=== PATIENT | female | born 1980 | race Caucasian/White ===

== ENCOUNTER 2019-02-20 13:49 | Emergency (ER) | payer MEDICAID ==
[~2019-02-20] VITALS: Ht 154.9 cm; Wt 61.4 kg
[~2019-02-20 13:49] MED LIST: MOTRIN
[2019-02-20 14:13] VITALS: BP 94/59
--- NOTE | 2019-02-20 14:15 | NUR ---
PT STARTED FEELING ABDOMINAL CRAMPING, SEVERE HEADACHE WITH SHAKING DURING TRIAGE, REPORTED TO L&D CHARGE NURSE DAILYNN AND SENT PT TO L&D VIA WHEELCHAIR.
--- NOTE | 2019-02-20 14:15 | NUR ---
Jeri cristina in ED - 02/20/19 at 1556 by CARRIE PT STARTED FEELING ABDOMINAL CRAMPING, SEVERE HEADACHE WITH SHAKING, REPORTED TO L&D CHARGE NURSE DAILYNN AND SENT PT TO L&D VIA WHEELCHAIR.
[2019-02-20] MEDS ORDERED: LACTATED RINGERS 1,000 ML IV ONE (15:35)
[2019-02-20] MEDS ORDERED: PREN-380 PO (15:43)
[2019-02-20] MEDS ORDERED: FERR-252 PO (15:43)
--- NOTE | 2019-02-20 15:45 | NUR ---
CALLED L&D SPOKE TO DAILYNN FOR UPDATE ON PT. PT WILL BE STAYING IN L&D AT THIS TIME. ER MD DR MI NOTIFIED. OB MD DR. PAEZ GAVE ORDER AND WILL SEE PT IN OB.
--- NOTE | 2019-02-20 16:45 | NUR ---
PATIENT TO BED 10 FROM L&D AT THIS TIME.
--- NOTE | 2019-02-20 16:50 | NUR ---
PT BIB SELF C/O HEADACHE, low abd cramping pain, n/v 2times, X 10PM lastnight 02/19/19. PT DENIES ANY TRUAMA, LMP 08/19/18 MIS AB0, NO VAG BLEDDING 26 WEEKS FHT 145. PT STS "LASTNIGHT AROUND 10PM, I STARTED HAVING TINGLING TO RIGHT SIDE OF MY BODY, LOW ABD CRAMPING, N/V 2TIMES AND LT SIDE HEADACHE FOR THREE HOURS. THEN THE PAIN WENT AWAY. MY RT HAND HAS TINGLING AND THE LEFT SIDE OF MY HEAD HAS PAIN OF AND ON."ER MD DR MARIAMA TATE PT IN L&D-PT TRANSFERRED TO ER BED 10. IV 18GA RT A/C DONE, BLOOD SENT TO LAB, EKG DONE, L&D AT BEDSIDE. SKIN IS INTACT, PALE/WARM/DRY; AAOX4, PERRL, WITH EVEN AND STEADY GAIT; LUNGS CLEAR BL, BREATHING UNLABORED; HR EVEN AND REGULAR, BL PERIPHERAL PULSES PRESENT; BS ACTIVE X4, TENDERNESS TO LOW ABD ON PALPATION, PT DENIES ANY FEVER, CP, SOB, OR COUGH AT THIS TIME; PT STATES 5/10 PAIN AT THIS TIME; VSS; PATIENT POSITIONED FOR COMFORT; HOB ELEVATED; BEDRAILS UP X2; BED DOWN. Pupils equal and reactive to light bilaterally. no facial droop noted. silght smile deficit noted off and on to rt side of mouth. Speech normal for patient. Patient is alert and oriented to person, place, time and event. Bilateral hand field support representative equal. Bilateral foot push equal.
--- NOTE | 2019-02-20 16:50 | NUR ---
CALLED 911 FOR CODE BRAIN TRANSFER PER DR. MI. ETA 10MIN
--- NOTE | 2019-02-20 16:52 | NUR ---
pt sts " i feel much better after the IV you gave me. may i get more IV, it made my headache feel better. pain now 10/26. dorothy, félix4 at this time.
[2019-02-20 16:53] LABS: BASOPHILS % (AUTO) 0.3 % (0.0-2.0); EOSINOPHILS # (AUTO) 0.1 K/uL (0-0.4); HEMATOCRIT 32.4 % (36-48); LYMPHOCYTES # (AUTO) 2.4 K/uL (2.5-16.5); LYMPHOCYTES % (AUTO) 31.7 % (20.5-51.1); MEAN CORPUSCULAR HEMOGLOBIN 31 pg (27-31); MEAN CORPUSCULAR HGB CONC 34 g/dL (33-37); MONOCYTES # (AUTO) 0.6 K/uL (0.8-1.0); MONOCYTES % (AUTO) 7.7 % (1.7-9.3); NEUTROPHILS # (AUTO) 4.5 K/uL (1.8-7.7); NEUTROPHILS % (AUTO) 59.3 % (42.2-75.2); PLATELET COUNT (AUTO) 237 K/uL (140-450); RED CELL DISTRIBUTION WIDTH 14.5 % (11.6-13.7); WHITE BLOOD COUNT (AUTO) 7.5 K/uL (4.8-10.8)
[2019-02-20 16:54] LABS: APPEARANCE,URINE CLEAR (CLEAR); BILIRUBIN,URINE NEGATIVE (NEGATIVE); BLOOD, URINE NEGATIVE (NEGATIVE); COLOR,URINE YELLOW (YELLOW); LEUKOCYTE ESTERASE ,URINE NEGATIVE (NEGATIVE); NITRITE, URINE NEGATIVE (NEGATIVE); PH,URINE 6.5 (5.0-9.0); UGLUCOSE NEGATIVE (NEGATIVE)
[2019-02-20 17:30] VITALS: BP 108/64
--- NOTE | 2019-02-20 17:30 | NUR ---
Patient to be transferred to [facility]. Is being transferred due to HIGHER LEVEL OF CARE. Receiving facility has accepting physician and available space. ER physician has signed transfer form. Patient or responsible republican has agreed to transfer and signed form. Patient belongings inventoried and will be sent with patient. Copy of nursing notes, lab reports, EKG, Physicians Orders and X-rays to be sent with patient. Report called to YOEL at receiving facility. [facility] ambulance service has been called for transfer. ETA is 10 MIN.
[2019-02-20 17:56] LABS: ALBUMIN 2.4 g/dL (3.4-5.0); ANION GAP 14.7 (8-16); CARBON DIOXIDE 22.8 mmol/L (21-32); CREATININE 0.5 mg/dL (0.6-1.3); POTASSIUM 3.5 mmol/L (3.5-5.1); TOTAL BILIRUBIN 0.4 mg/dL (0.0-1.0)
== END 2019-02-20 17:30 | disposition short-term general hospital (02) ==
LOC: MED 13:49 → MLD 14:23 → MED 15:32 → UNDOADMOB 15:33 → MLD 15:33 → MED 17:30
DX: O26.892 Other specified pregnancy related conditions, second trimester (principal); R51 Headache; R29.810 Facial weakness; R20.0 Anesthesia of skin; Z3A.28 28 weeks gestation of pregnancy; Z79.899 Other long term (current) drug therapy; Z88.0 Allergy status to penicillin
CPT/HCPCS: 36415; 80053; 81003; 82948; 85025; 93005; 93970; 99285; J7120; Q0092

== ENCOUNTER 2019-05-14 11:12 | Inpatient (IN) | payer MEDICAID ==
[~2019-05-14] VITALS: Ht 154.9 cm; Wt 67.1 kg
[~2019-05-14 11:12] MED LIST changes: +FERR-252 PO; -MOTRIN; +PREN-380 PO
[2019-05-14 11:45] VITALS: BP 103/70
[2019-05-14] MEDS ORDERED: CARBOPROST 250 MCG/ML AMP IM PRN (14:25)
[2019-05-14] MEDS ORDERED: METHYLERGONOVINE 0.2 MG/ML AMP IM PRN ×2 (14:25→18:25)
[2019-05-14] MEDS ORDERED: LACTATED RINGERS 1,000 ML IV SCH (15:00)
[2019-05-14] MEDS ORDERED: CITRIC ACID/SODIUM CITRATE 30 ML UDC PO SCH (15:15)
[2019-05-14] MEDS ORDERED: CLINDAMYCIN 900 MG in DEXTROSE 5% 100 ML IV SCH ×3 (15:20→21:00)
[2019-05-14 15:35] LABS: BILIRUBIN,URINE NEGATIVE (NEGATIVE); BLOOD, URINE NEGATIVE (NEGATIVE); COLOR,URINE YELLOW (YELLOW); LEUKOCYTE ESTERASE ,URINE TRACE (NEGATIVE); NITRITE, URINE NEGATIVE (NEGATIVE); UGLUCOSE NEGATIVE (NEGATIVE)
[2019-05-14 15:37] LABS: APPEARANCE,URINE HAZY (CLEAR)
[2019-05-14 15:41] LABS: BASOPHILS # (AUTO) 0.1 K/uL (0.00-0.22); BASOPHILS % (AUTO) 0.9 % (0.0-2.0); EOSINOPHILS % (AUTO) 0.5 % (0.0-4.0); HEMATOCRIT 36.8 % (36-48); HEMOGLOBIN 12.1 g/dL (12.0-16.0); LYMPHOCYTES # (AUTO) 2.5 K/uL (2.5-16.5); LYMPHOCYTES % (AUTO) 38.2 % (20.5-51.1); MEAN CORPUSCULAR HEMOGLOBIN 30 pg (27-31); MEAN CORPUSCULAR HGB CONC 33 g/dL (33-37); MEAN CORPUSCULAR VOLUME 91.5 fL (80-94); MONOCYTES # (AUTO) 0.5 K/uL (0.8-1.0); MONOCYTES % (AUTO) 7.4 % (1.7-9.3); NEUTROPHILS # (AUTO) 3.5 K/uL (1.8-7.7); PLATELET COUNT (AUTO) 166 K/uL (140-450); RED BLOOD CELL COUNT(AUTO) 4.02 MIL/uL (4.20-5.40); RED CELL DISTRIBUTION WIDTH 16.9 % (11.6-13.7); WHITE BLOOD COUNT (AUTO) 6.6 K/uL (4.8-10.8)
[2019-05-14 15:41] LABS: CARBON DIOXIDE 22.3 mmol/L (21-32); CREATININE 0.6 mg/dL (0.6-1.3); POTASSIUM 4.3 mmol/L (3.5-5.1)
[2019-05-14] MEDS: LACTATED RINGERS 1,000 ML IV SCH (15:41)
[2019-05-14 15:47] LABS: ALBUMIN 2.7 g/dL (3.4-5.0); TOTAL BILIRUBIN 0.5 mg/dL (0.0-1.0)
[2019-05-14 15:50] LABS: RBC,URINE NONE SEEN /HPF (0-5); WBC,URINE 0-5 /HPF (0-5)
[2019-05-14] MEDS ORDERED: CITRIC ACID/SODIUM CITRATE 30 ML UDC ONE (15:56)
[2019-05-14] MEDS ORDERED: OXYTOCIN 10 UNITS/ML VIAL ONE (16:32)
[2019-05-14] MEDS ORDERED: ePHEDrine 50 MG/ML VIAL ONE (16:32)
[2019-05-14] MEDS ORDERED: fentaNYL 0.05 MG/ML VIAL ONE (16:44)
[2019-05-14] MEDS ORDERED: MORPHINE PRES FREE 10 MG/10 ML AMP IV ONE (16:44)
[2019-05-14] MEDS ORDERED: diphenhydrAMINE 50 MG/ML VIAL IVP PRN (17:15)
[2019-05-14] MEDS ORDERED: NALOXONE 0.4 MG/ML VIAL IVP PRN ×3 (17:15)
[2019-05-14] MEDS ORDERED: NALBUPHINE 10 MG/ML AMP IVP PRN (17:15)
[2019-05-14] MEDS ORDERED: ONDANSETRON 4 MG/2 ML VIAL IVP PRN ×2 (17:15)
[2019-05-14] MEDS ORDERED: ONDANSETRON 4 MG/2 ML VIAL ONE (17:37)
[2019-05-14] MEDS ORDERED: OXYTOCIN 20 UNITS/LR PREMIX 1,000 ML IV ONE ×2 (17:37→22:15)
[2019-05-14] MEDS ORDERED: diphenhydrAMINE 50 MG/ML VIAL ONE (17:37)
[2019-05-14] MEDS ORDERED: IBUPROFEN 800 MG TAB PO PRN (18:25)
[2019-05-14] MEDS ORDERED: MEASLES, MUMPS, AND RUBELLA 1 VIAL SQVAC PRN (18:25)
[2019-05-14] MEDS ORDERED: BENZOCAINE/MENTHOL 20%-0.5% 60 GM CAN TP PRN (18:25)
[2019-05-15] MEDS: KETOROLAC 30 MG/ML VIAL IVP PRN ×2 (00:54→08:23)
[2019-05-15] MEDS ORDERED: NALBUPHINE 10 MG/ML AMP IVP STA (05:41)
[2019-05-15] MEDS ORDERED: ACETAMINOPHEN 325 MG TAB PO SCH (06:00)
[2019-05-15] MEDS ORDERED: ACETAMINOPHEN 325 MG TAB ONE (06:03)
[2019-05-15] MEDS ORDERED: OXYTOCIN 20 UNITS/LR PREMIX 1,000 ML IV ONE (06:31)
--- NOTE | 2019-05-15 08:21 | NUR ---
PATIENT HAS BEEN SCREENED AND CATEGORIZED LOW NUTRITION RISK. PATIENT WILL BE SEEN WITHIN 7 DAYS OF ADMISSION. 05/21/[address]
[2019-05-15] MEDS: BISACODYL 10 MG SUPP RC SCH (09:00)
[2019-05-15] MEDS: LACTATED RINGERS 1,000 ML IV SCH (11:52)
[2019-05-15 12:29] LABS: HEMATOCRIT 22.8 % (36-48); HEMOGLOBIN 7.7 g/dL (12.0-16.0)
[2019-05-15] MEDS: oxyCODONE/APAP 5/325 MG 1 TAB TAB PO PRN ×2 (16:13→22:18)
[2019-05-15] MEDS ORDERED: OXYTOCIN 20 UNITS in LACTATED RINGERS 1,000 ML IV SCH (16:55)
[2019-05-16] MEDS: oxyCODONE/APAP 5/325 MG 1 TAB TAB PO PRN (05:06)
[2019-05-16 07:48] LABS: BASOPHILS % (AUTO) 0.3 % (0.0-2.0); EOSINOPHILS # (AUTO) 0.1 K/uL (0-0.4); EOSINOPHILS % (AUTO) 1.2 % (0.0-4.0); HEMATOCRIT 27.9 % (36-48); HEMOGLOBIN 9.2 g/dL (12.0-16.0); LYMPHOCYTES # (AUTO) 2.4 K/uL (2.5-16.5); LYMPHOCYTES % (AUTO) 24.7 % (20.5-51.1); MEAN CORPUSCULAR HEMOGLOBIN 30 pg (27-31); MEAN CORPUSCULAR HGB CONC 33 g/dL (33-37); MEAN CORPUSCULAR VOLUME 91.9 fL (80-94); MONOCYTES # (AUTO) 0.7 K/uL (0.8-1.0); NEUTROPHILS # (AUTO) 6.4 K/uL (1.8-7.7); NEUTROPHILS % (AUTO) 66.8 % (42.2-75.2); PLATELET COUNT (AUTO) 185 K/uL (140-450); RED BLOOD CELL COUNT(AUTO) 3.03 MIL/uL (4.20-5.40); RED CELL DISTRIBUTION WIDTH 17.7 % (11.6-13.7); WHITE BLOOD COUNT (AUTO) 9.6 K/uL (4.8-10.8)
[2019-05-16] MEDS ORDERED: IBUPROFEN 800 MG TAB PO SCH ×2 (08:30→11:00)
[2019-05-16] MEDS ORDERED: oxyCODONE/APAP 5/325 MG 1 TAB TAB PO SCH (08:35)
[2019-05-16] MEDS: BISACODYL 10 MG SUPP RC SCH (08:43)
[2019-05-16] MEDS ORDERED: IBUPROFEN 600 MG TAB PO SCH ×2 (11:21→11:30)
[2019-05-16] MEDS: oxyCODONE/APAP 5/325 MG 1 TAB TAB PO SCH (14:02)
[2019-05-16] MEDS: IBUPROFEN 600 MG TAB PO SCH ×2 (17:02→23:03)
[2019-05-17] MEDS: oxyCODONE/APAP 5/325 MG 1 TAB TAB PO SCH ×2 (00:04→06:04)
[2019-05-17] MEDS: IBUPROFEN 600 MG TAB PO SCH (05:03)
[2019-05-17] MEDS ORDERED: IBUPROFEN 600 MG TAB PO PRN (11:05)
[2019-05-17] MEDS: BISACODYL 5 MG TABEC PO PRN (13:02)
[2019-05-17] MEDS: oxyCODONE/APAP 5/325 MG 1 TAB TAB PO PRN ×2 (13:03→21:38)
[2019-05-18] MEDS: oxyCODONE/APAP 5/325 MG 1 TAB TAB PO PRN ×2 (04:01→12:41)
[2019-05-18] MEDS: BISACODYL 5 MG TABEC PO PRN (09:06)
== END 2019-05-18 15:35 | disposition home or self-care (01) | DRG 540 ==
LOC: MLD 11:12 → OBSVTOIN 14:10 → MFCC 19:39
PROVIDERS: ADMIT Obstetrics & Gynecology; ATTEND Obstetrics & Gynecology
PROC: 10D00Z1 Extraction of Products of Conception, Low, Open Approach (ICD-10-PCS; 2019-05-14)
PROC: 3E0234Z Introduction of Serum, Toxoid and Vaccine into Muscle, Percutaneous Approach (ICD-10-PCS; 2019-05-14)
PROC: 10907ZC Drainage of Amniotic Fluid, Therapeutic from Products of Conception, Via Natural or Artificial Opening (ICD-10-PCS; principal; 2019-05-14 16:00)
DX: O76 Abnormality in fetal heart rate and rhythm complicating labor and delivery (principal); D62 Acute posthemorrhagic anemia; O34.211 Maternal care for low transverse scar from previous cesarean delivery; K66.0 Peritoneal adhesions (postprocedural) (postinfection); Z37.0 Single live birth; Z3A.38 38 weeks gestation of pregnancy; O99.62 Diseases of the digestive system complicating childbirth; O90.81 Anemia of the puerperium; Z23 Encounter for immunization
CPT/HCPCS: G0378 ×3; 36415; 51702; 76819; 80053; 81001; 85018; 85025; 86592; 86886; 86900; 86901; 87086; J1200; J1885; J2270; J2405; J2590; J3010; J3490; J7060; J7120; Q0092

== ENCOUNTER 2021-04-06 18:07 | Emergency (ER) | payer MEDICAID ==
[~2021-04-06] VITALS: Ht 154.9 cm; Wt 54.7 kg
[2021-04-06 18:20] VITALS: BP 105/57
--- NOTE | 2021-04-06 22:00 | NUR ---
RECEIVED IN BED 12 FROM LOBBY WITH C/O URINARY BURNING , LOWER ABD PAIN, LOWER BACK PAIN X 5 DAYS. PMH: DENIES
--- NOTE | 2021-04-06 22:09 | NUR ---
DR BOB AT BEDSIDE FOR EXAM
[2021-04-06] MEDS ORDERED: KETOROLAC 30 MG/ML VIAL IM ONE (22:25)
[2021-04-06 22:41] LABS: BASOPHILS % (AUTO) 0.5 % (0.0-2.0); EOSINOPHILS # (AUTO) 0.2 K/uL (0-0.4); EOSINOPHILS % (AUTO) 2.4 % (0.0-4.0); HEMATOCRIT 39.6 % (36-48); HEMOGLOBIN 13.2 g/dL (12.0-16.0); LYMPHOCYTES # (AUTO) 3.7 K/uL (2.5-16.5); LYMPHOCYTES % (AUTO) 45.6 % (20.5-51.1); MEAN CORPUSCULAR HEMOGLOBIN 30 pg (27-31); MEAN CORPUSCULAR HGB CONC 33 g/dL (33-37); MEAN CORPUSCULAR VOLUME 89.3 fL (80-94); MONOCYTES # (AUTO) 0.7 K/uL (0.8-1.0); MONOCYTES % (AUTO) 8.4 % (1.7-9.3); NEUTROPHILS # (AUTO) 3.4 K/uL (1.8-7.7); NEUTROPHILS % (AUTO) 43.1 % (42.2-75.2); PLATELET COUNT (AUTO) 290 K/uL (140-450); RED BLOOD CELL COUNT(AUTO) 4.44 MIL/uL (4.20-5.40); RED CELL DISTRIBUTION WIDTH 13.8 % (11.6-13.7)
[2021-04-06 22:44] LABS: APPEARANCE,URINE CLEAR (CLEAR); BILIRUBIN,URINE NEGATIVE (NEGATIVE); BLOOD, URINE NEGATIVE (NEGATIVE); COLOR,URINE YELLOW (YELLOW); LEUKOCYTE ESTERASE ,URINE TRACE (NEGATIVE); NITRITE, URINE NEGATIVE (NEGATIVE); PH,URINE 6.5 (5.0-9.0); UGLUCOSE NEGATIVE (NEGATIVE)
[2021-04-06 22:48] LABS: RBC,URINE 0-5 /HPF (0-5)
[2021-04-06 22:55] LABS: ALBUMIN 3.7 g/dL (3.4-5.0); ANION GAP 12.5 (8-16); CARBON DIOXIDE 27.5 mmol/L (21-32); CREATININE 0.7 mg/dL (0.6-1.3); TOTAL BILIRUBIN 0.4 mg/dL (0.0-1.0)
--- NOTE | 2021-04-07 02:00 | NUR ---
RESTING QUIETLY WITHOUT COMPLAINT. FAMILY VISITING AT BEDSIDE. AWAITING REEVAL
[2021-04-07] MEDS ORDERED: MAGN1.7529 PO (02:30)
[2021-04-07 03:05] VITALS: BP 114/63
--- NOTE | 2021-04-07 03:05 | NUR ---
Patient discharged with v/s stable. Written and verbal after care instructions given and explained. Patient alert, oriented and verbalized understanding of instructions. Ambulatory with steady gait. All questions addressed prior to discharge. ID band removed. Patient advised to follow up with PMD. Rx of MAGNESIUM CITRATE given. Patient educated on indication of medication including possible reaction and side effects. Opportunity to ask questions provided and answered.
== END 2021-04-07 03:05 | disposition home or self-care (01) ==
LOC: MED 18:07
DX: K59.00 Constipation, unspecified (principal); N39.0 Urinary tract infection, site not specified; Z88.0 Allergy status to penicillin
CPT/HCPCS: 36415; 74018; 76770; 80053; 81001; 81025; 83690; 85025; 87086; 96372; 99285; J1885; Q0092